=== PATIENT | female | born 1960 | race Caucasian/White ===

== ENCOUNTER 2025-06-09 08:27 | Emergency (ER) | payer BC, SELFPAY ==
[2025-06-09] VITALS (8 sets, daily range): BP systolic 105–134; BP diastolic 62–85; PULSE 65–77; BMI 31.7
--- NOTE | 2025-06-09 09:27 | ED.GENMED ---
History of Present Illness
General
Chief Complaint: Breathing Problem
Time Seen by Provider: 06/09/25 09:03
History of Present Illness
History of Present Illness:
64-year-old female with history of hypertension presenting to the emergency department for lightheadedness and shortness of breath. Patient notes symptoms started acutely this morning when she was at work. She reports that the lightheadedness is
worse with sitting up and standing up. Also notes associated dyspnea, however that has since improved. Denies any associated chest pain. Did have a mild cough. Denies fever or known sick contacts. Denies abdominal pain or additional GI
symptoms. Denies any history of blood clots, recent surgery, recent travel. Denies any dizziness. Denies additional acute medical complaints
Past History
Past History
ED Past Medical History: Other (migraine)
ED Past Surgical History: None
Social History
Personal:
Living: with family
Phy Exam
Physical Exam
Physical Exam:
General: Well-appearing, no clinical signs of dehydration, nontoxic and in no acute distress
HEENT: protecting airway
Neck: appears supple
CV: Normal heart rate, regular rhythm
Resp: No accessory muscle use, no increased work of breathing, lungs clear to auscultation bilaterally
Abd: No distention
Extremities: No deformities, no swelling
Neuro: alert, no focal neurologic deficit
: deferred
Rectal: deferred
Psych: Normal affect
Skin: Intact
Scores
Heart Failure Risk
Heart Failure Risk Score: Not Applicable
Course
Orders/Labs/Results
Orders:
Orders
06/09/25 08:35
Electrocardiogram (*1) Urgent
Reason for Study: Shortness of Breath
EKG- Treatment ONCE
06/09/25 09:18
Orthostatic VS- Treatment ONCE
0.9% Sodium Chloride 1000 ml [Nss] 1,000 ml IV BOLUS
CR Chest - 2 Views Urgent
Comment:
Reason For Exam: sob
06/09/25 09:37
COVID-19 Antigen Urgent
Source: Nasal Swab
Complete Blood Count/With Diff Urgent
Comprehensive Metabolic Panel Urgent
Troponin I Urgent
Influenza A+B Rapid Molecular Urgent
JESS Source: Nasal Swab
Specimen Description:
Abnormal Lab Results
06/09/25
09:37
RBC 3.99 L 10^6/uL
(4.20-5.40)
Hct 36.1 L %
(37.0-47.0)
Creatinine 0.5 L mg/dL
(0.6-1.0)
06/09/25 09:37
06/09/25 09:37
Vital Signs
Initial and Last Documented VS:
Initial Vital Signs
Temp Pulse Resp BP Pulse Ox
97.7 F 74 16 134/84 98
06/09/25 08:33 06/09/25 08:33 06/09/25 08:33 06/09/25 08:33 06/09/25 08:33
Last Documented Vital Signs
Temp Pulse Resp BP Pulse Ox
97.7 F 78 20 112/78 99
06/09/25 08:33 06/09/25 11:15 06/09/25 11:15 06/09/25 11:00 06/09/25 11:15
MDM/Problems Addressed
MDM/Problems Addressed:
64-year-old female presenting to the emergency department for lightheadedness and shortness of breath. Vital signs on arrival are normal.
On exam, patient is resting comfortably, no acute distress. No present respiratory distress. No increased work of breathing. Lungs are clear to auscultation. Regarding patient's dyspnea, nontoxic, afebrile, lower suspicion for pneumonia. No
signs of volume overload or concern for CHF. EKG obtained, nonischemic, no chest pain. Without concern for ACS. No tachycardia, no hypoxia, no PE risk factors, without concern for PE. Will screen with chest x-ray imaging. Regarding
lightheadedness, no focal neurologic deficits on exam. Again nonischemic EKG, no arrhythmia. Suspect possible vasovagal quality to symptoms. Will obtain orthostatics and screen with laboratory analysis. Will administer IV fluids
11:20 - Patient's labs are unremarkable. Chest x-ray without acute cardiopulmonary disease and orthostatics are negative. On reassessment patient remains hemodynamically stable and stable from respiratory standpoint. Ultimately feel stable for
discharge with outpatient primary care follow-up. Return precautions discussed and patient verbalized understanding
*Pulse Oximetry
SaO2: 98
Oxygen Mode of Delivery: Room air
Patient hypoxic: no
*EKG
Interpreted by ED Provider?: Yes
EKG Intrepretation Date: 06/09/25
EKG Intrepretation Time: 09:31
Interpretation: normal
Heart Rate: 69
Rate: normal
Rhythm: sinus
[place]: normal axis
Interval: normal interval
QRS Pattern: normal QRS
Ischemia: no ischemia
*Critical Care Note
Total Time (30-74mins, 75-104mins- exclusive of procedures): Not Applicable
ED Attending Note
-
Portions of this chart may have been created with voice recognition software.� Occasional wrong word or��sound alike� substitutions may have occurred due to the inherent limitations of voice recognition software.
Discharge Plan
Departure
Patient Disposition: Home (Routine Discharge)
Date of Disposition: 06/09/25
Time of Disposition: 11:27
Patient with high blood pressure during this ER visit?: No
Condition: Good
Discharge Problem:
Lightheadedness
Instructions: Dizziness in adults - ED (DC), Shortness of breath in adults - ED (DC)
Prescriptions:
No Action
ondansetron HCl 4 MG tablet
4 mg PO TIDPRN PRN (Reason: nausea) Qty: 8 0RF
tamsulosin 0.4 MG capsule
0.4 mg PO DAILY Qty: 7 0RF
diclofenac sodium 75 MG tablet,delayed release (DR/EC)
75 mg PO BID Qty: 10 0RF
Referrals:
Fletcher Grossman MD [Family Provider, [facility]]
Activity Restrictions/Additional Instructions:
You were seen in the emergency department for an episode of lightheadedness and shortness of breath
You were found to have reassuring vital signs, EKG, laboratory analysis and chest x-ray imaging
Please follow-up closely with your primary care physician.
Return to the emergency department for any worsening of your symptoms, or any development of chest pain, difficulty breathing, abdominal pain with persistent vomiting and inability to tolerate food or liquid by mouth (concern for dehydration),
weakness, headache or confusion, fever greater than 100.4, or any additional symptoms that are concerning to you.
Thank you for choosing [facility].
Interventions
Interventions:
*Risk Screen - Suicide Last Done: 06/09/25 08:33
*General Assessment Last Done: 06/09/25 09:26
*Neglect/Abuse Screening Last Done: 06/09/25 08:33
*ED- Fall Risk Assessment Last Done: 06/09/25 09:26
*ED COVID-19 Vaccine History Last Done: 06/09/25 09:26
*Nursing Disposition Last Done: 06/09/25 11:38
ED- Cardiac Assessment Last Done: 06/09/25 10:39
ED- Pulmonary Assessment Last Done: 06/09/25 10:39
Discharge Date and Time
Discharge Date/Time: 06/09/25 11:45
Print Language: CROATIAN
[2025-06-09] MEDS: NSS 1000 IV (09:34)
[2025-06-09 09:50] LABS: Hematocrit 36.1 % (37.0-47.0); Hemoglobin 12.3 g/dL (12.0-16.0); Mean Corp Hgb Conc. 34.1 g/dL (33.0-37.0); Mean Corpuscular Volume 90.5 fL (81.0-99.0); Nucleated Red Blood Cells % 0 %; Platelet Count 221 10^3/uL (130-400); Red Cell Dist. Width 11.7 % (11.5-14.5)
[2025-06-09 10:13] LABS: COVID-19 Antigen Negative (Negative)
[2025-06-09 10:20] LABS: ALT (SGPT) 15 U/L (0-35); AST (SGOT) 21 U/L (14-36); Albumin 4.2 g/dl (3.5-5.0); Alkaline Phosphatase 63 U/L (38-126); Blood Urea Nitrogen 14 mg/dl (7-17); Calcium 9.9 mg/dl (8.4-10.2); Carbon Dioxide 24 mmol/L (22-30); Chloride 107 mmol/L (98-107); Estimated Creatinine Clearance 98 ml/min; Glucose 95 mg/dl (70-99); Potassium 4.7 mmol/L (3.5-5.1); Sodium 137 mmol/L (135-145); Total Protein 7.2 g/dl (6.3-8.2); eGFR > 60.00
[2025-06-09 10:31] LABS: Troponin I < 0.012 ng/ml
== END 2025-06-09 11:45 | disposition home or self-care (01) ==
LOC: EMR 08:27
PROVIDERS: EMERGENCY PHYSICIAN Student in an Organized Health Care Education/Training Program; FAMILY PHYSICIAN Family Medicine
DX: R42 Dizziness and giddiness (principal); I10 Essential (primary) hypertension
CPT/HCPCS: 99283; 96360; 71046; 80053; 84484; 85025; 87502; 87811; 93005